=== PATIENT | female | born 1970 | race Caucasian/White ===

== ENCOUNTER 2019-03-10 17:05 | Observation (INO) ==
[2019-03-10] MEDS ORDERED: Naloxone 0.4 MG/ML INJ IVP PRN (21:01)
[2019-03-10 21:50] LABS: Hematocrit 33.2 % (35.3-44.9); Hemoglobin 11.3 g/dL (11.5-15.4); Mean Corpuscular Hemoglobin 28.5 pg (28.0-33.3); Mean Corpuscular Volume 83.8 fL (83.0-100.0); Mean Platelet Volume 10.2 fL (9.4-12.4); Platelet Count 343 K/mcL (140-400); Red Blood Count 3.96 M/mcL (3.82-4.97); Red Cell Distribution Width 16.3 % (11.5-14.5)
[2019-03-10 22:07] LABS: Albumin 3.6 g/dL (3.5-5.7); Albumin/Globulin Ratio 1.1 (1.1-2.2); Bilirubin,Total 0.5 mg/dL (0.3-1.0); Calcium 8.5 mg/dL (8.6-10.3); Globulin 3.4 g/dL (2.4-3.5); Potassium 3.4 mEq/L (3.5-5.1)
[2019-03-10] MEDS: 0.9 % Sodium Chloride 1,000 ML IVC SCH (22:35)
[2019-03-10] MEDS: Ondansetron 4 MG/2 ML VIAL IVP PRN (23:06)
[2019-03-11] MEDS: MetroNIDAZOLE 500 MG/100 ML 500 MG/100 ML BAG IVPB SCH ×3 (00:55→14:25)
[2019-03-11] MEDS ORDERED: Acetaminophen 325 MG TABLET PO ONE (04:57)
[2019-03-11] MEDS: 0.9 % Sodium Chloride 1,000 ML IVC SCH (06:52)
[2019-03-11] MEDS: Ondansetron 4 MG/2 ML VIAL IVP PRN ×2 (09:35→21:46)
[2019-03-11] MEDS: *HR* Promethazine 25 MG/ML VIAL IVP SCH (12:53)
[2019-03-11] MEDS ORDERED: SODIUM CHLORIDE/NAHCO3/KCL/PEG 4,000 ML SOLN.RECON PO ONE (17:00)
[2019-03-12] MEDS: MetroNIDAZOLE 500 MG/100 ML 500 MG/100 ML BAG IVPB SCH ×4 (00:09→23:18)
[2019-03-12] MEDS ORDERED: *HR* Promethazine 25 MG/ML VIAL IVP ONE (00:41)
[2019-03-12 06:12] LABS: Basophils # 0.1 K/mcL (0.0-0.2); Basophils % 0.5 %; Eosinophils # 0.2 K/mcL (0.0-0.6); Eosinophils % 1.9 %; Hematocrit 33.7 % (35.3-44.9); Hemoglobin 11.1 g/dL (11.5-15.4); Immature Granulocytes % 2.4 % (0-4); Lymphocytes # 1.5 K/mcL (0.6-4.6); Lymphocytes % 11.4 %; Mean Corpuscular HGB Conc 32.9 g/dL (31.6-35.5); Mean Corpuscular Volume 85.1 fL (83.0-100.0); Mean Platelet Volume 10.3 fL (9.4-12.4); Monocytes # 0.5 K/mcL (0.0-1.3); Monocytes % 4.2 %; Neutrophils # 10.1 K/mcL (1.6-8.9); Platelet Count 327 K/mcL (140-400); Red Blood Count 3.96 M/mcL (3.82-4.97); Red Cell Distribution Width 15.9 % (11.5-14.5); Segmented Neutrophils % 79.6 %; White Blood Count 12.7 K/mcL (4.3-11.1)
[2019-03-12 06:35] LABS: BUN/Creatinine Ratio 16 (6-26); Blood Urea Nitrogen 17 mg/dL (6-20); Calcium 8.4 mg/dL (8.6-10.3); Carbon Dioxide 25 mEq/L (23-29); Chloride 99 mEq/L (98-107); Glucose 141 mg/dL (70-105); Osmolality,Calculated 282 (280-300); Potassium 3.5 mEq/L (3.5-5.1); Sodium 134 mEq/L (136-145); eGFR For African Americans > 60 (> 60); eGFR For Non-African Americans 53 (> 60)
[2019-03-12] MEDS: Ondansetron 4 MG/2 ML VIAL IVP PRN ×2 (11:43→17:50)
[2019-03-12] MEDS: *HR* Promethazine 25 MG/ML VIAL IVP SCH (12:15)
[2019-03-13 04:50] LABS: Basophils # 0.1 K/mcL (0.0-0.2); Basophils % 0.5 %; Eosinophils # 0.2 K/mcL (0.0-0.6); Eosinophils % 2.3 %; Hematocrit 30.7 % (35.3-44.9); Hemoglobin 9.9 g/dL (11.5-15.4); Immature Granulocytes % 1.8 % (0-4); Lymphocytes # 1.8 K/mcL (0.6-4.6); Lymphocytes % 18.2 %; Mean Corpuscular HGB Conc 32.2 g/dL (31.6-35.5); Mean Corpuscular Hemoglobin 28.7 pg (28.0-33.3); Monocytes # 0.6 K/mcL (0.0-1.3); Monocytes % 5.6 %; Platelet Count 278 K/mcL (140-400); Red Blood Count 3.45 M/mcL (3.82-4.97); Segmented Neutrophils % 71.6 %; White Blood Count 9.8 K/mcL (4.3-11.1)
[2019-03-13 05:09] LABS: BUN/Creatinine Ratio 13 (6-26); Blood Urea Nitrogen 13 mg/dL (6-20); Calcium 8.1 mg/dL (8.6-10.3); Carbon Dioxide 27 mEq/L (23-29); Chloride 106 mEq/L (98-107); Glucose 96 mg/dL (70-105); Osmolality,Calculated 282 (280-300); Potassium 3.5 mEq/L (3.5-5.1); Sodium 136 mEq/L (136-145); eGFR For African Americans > 60 (> 60); eGFR For Non-African Americans 57 (> 60)
[2019-03-13] MEDS ORDERED: Propofol 500 MG/50 ML INFUS..BTL ONE (07:23)
[2019-03-13] MEDS: MetroNIDAZOLE 500 MG/100 ML 500 MG/100 ML BAG IVPB SCH ×2 (08:20→15:42)
[2019-03-13] MEDS ORDERED: amLODIPine 5 MG TABLET PO SCH (09:00)
[2019-03-13] MEDS: *HR* Promethazine 25 MG/ML VIAL IVP SCH (11:35)
[2019-03-13 15:07] VITALS: BP 123/79
== END 2019-03-13 18:09 | disposition home or self-care (01) ==
LOC: 3ANU → SUATTDRO 19:09
PROVIDERS: ADMIT Internal Medicine; ATTEND Internal Medicine
PROC: ENDOCBX (2019-03-13 19:10)